=== PATIENT | male | born 1950 | race Caucasian/White ===

== ENCOUNTER 2017-09-03 09:14 | Outpatient (CLI) | payer MEDICARE, BC ==
--- NOTE | 2017-09-03 11:21 | CT ---
CT ABDOMEN AND PELVIS WITH AND WITHOUT CONTRAST: HISTORY: Hematuria. COMPARISON: None. FINDINGS: Mild atelectatic changes in the lung bases. No pericardial effusion. On noncontrast evaluation, there are no renal calculi. There is dilatation of the left ureter greate r than the right ureter. No abnormal calcifications within the urinary bladder. On the precontrast, there is mild dilatation of the left ureter, although on the 9-second delayed, th e left ureter is not dilated, likely the sequelae of peristalsis. There is no abnormal renal enhanci ng mass. No hydroureteral nephrosis. The calyces and collecting systems are without filling defect. The prostate is markedly enlarged measuring 4.5 x 5.4 x 4.7 cm, approximately. No dilated loops of l arge or small bowel. No adenopathy. Aortoiliac contour is normal with only mild vascular calcificat ions. IMPRESSION: 1. No nephroureteral lithiasis or hydroureteral nephrosis. No secondary evidence of recently passed stone. 2. No abnormal renal enhancing mass. 3. No defect within the collecting systems of the ureters or the kidneys bilaterally. 4. Marked prostatomegaly likely the cause of patient's hematuria. POS: [facility]
== END 2017-09-03 09:15 | disposition home or self-care (01) ==
LOC: CT 09:14
PROVIDERS: ATTEND Urology
DX: N40.1 Benign prostatic hyperplasia with lower urinary tract symptoms (principal); R31.29 Other microscopic hematuria
CPT/HCPCS: 36415; 74178; 80048; 81001; 87086

== ENCOUNTER 2018-03-22 14:23 | Outpatient (CLI) | payer MEDICARE, BC ==
[~2018-03-22 14:23] MED LIST: Gadobenate Dimeglumine 529 MG/1 ML (20ML VIAL) ONE
--- NOTE | 2018-03-23 11:15 | MRI ---
MRI PELVIS (PROSTATE) WITH AND WITHOUT IV CONTRAST: HISTORY: Elevated PSA of 5.25 on 02/23/2018 (normal 0-4). COMPARISON: None. TECHNIQUE: Multiplanar, multisequence MRI of the pelvis was performed with and without IV contrast using the pro state protocol. Review at an independent 3D work station was also performed. FINDINGS: No prostate biopsy was performed. The prostate measures 5.5 x 4.2 x 4.2 cm with a volume of 50.5 cc. No focal abnormal area of diffusion restriction is seen in the peripheral zone. No lentiform area of abnormally decreased T2 signal is seen in the transitional zone. No focal arterial enhancing mass i s identified. The prostatic capsule and seminal vesicles are intact. Heterogeneity in the prostate gland is consistent with BPH. No lymphadenopathy is seen in the pelvis. The pelvic sidewall is normal. No free fluid is identifie d. Bone marrow signal is unremarkable. IMPRESSION: PI-RADS 2-Low (clinically significant prostate cancer is unlikely to be present). This study was interpreted in consultation with Dr. Shakeel Casey, who concurs. POS: [facility]
== END 2018-03-22 14:24 | disposition home or self-care (01) ==
LOC: TBSIIMAG 14:23
PROVIDERS: ATTEND Urology
DX: N40.1 Benign prostatic hyperplasia with lower urinary tract symptoms (principal); R97.20 Elevated prostate specific antigen [PSA]
CPT/HCPCS: 72197; A9579

== ENCOUNTER 2018-07-19 15:20 | Outpatient (CLI) | payer MEDICARE, BC ==
[2018-07-19 16:40] LABS: Hemoglobin 13.3 g/dL (14.0-18.0); Mean Corpuscular HGB CONC 35.3 g/dL (32.0-36.0); Mean Corpuscular Volume 93.3 fL (78.0-98.0); Mean Platelet Volume 9.1 fL (7.4-10.4); Platelet Count 168 thou/uL (130-400); RBC Distribution Width 11.5 % (11.5-14.5); Red Blood Cell (RBC) Count 4.03 mill/uL (4.70-6.10); White Blood Cell (WBC) Count 5.3 thou/uL (4.8-10.8)
[2018-07-19 16:45] LABS: INR-International Normal Ratio 0.9; Prothrombin Time 12.4 SEC (12.0-14.7)
[2018-07-19 16:46] LABS: PTT 27.8 SEC (22.9-36.1)
[2018-07-19 17:01] LABS: Anion Gap 12 mmol/L (10-20); BUN (Urea Nitrogen) 24 mg/dL (8.4-25.7); Calc. Creatinine Clearance 0 mL/min (70-130); Calcium 9.5 mg/dL (7.8-10.44); Carbon Dioxide 30 mmol/L (23-31); Chloride 102 mmol/L (98-107); Estimated GFR-MDRD 44; Glucose 93 mg/dL (80-115); Potassium 4.6 mmol/L (3.5-5.1); Sodium 139 mmol/L (136-145)
[2018-07-19 20:01] LABS: Bilirubin Negative (Negative); Blood, Urine Negative (Negative); Clarity CLEAR (Clear); Glucose, Urine (Dipstick) Negative (Negative); Leukocyte Negative (Negative); Nitrite Negative (Negative); Protein, Urine (Dipstick) Negative (Neg-Trace); Specific Gravity, Urine 1.013 (1.002-1.036); Urobilinogen 0.2 mg/dL (0.2-1.0); pH, Urine 5.5 (5.0-9.0)
[2018-07-19 20:03] LABS: Bacteria/HPF None Seen HPF (None Seen); Hyaline Casts/LPF 0-3 HYALINE CAST LPF (0-3 Hyaline); Squamous Epithelial None Seen HPF (0-3); WBC/HPF 0-3 HPF (0-3)
--- NOTE | 2018-07-21 21:49 | EKG ---
Test Reason : Blood Pressure : / mmHG Vent. Rate : 047 BPM Atrial Rate : 047 BPM P-R Int : 162 ms QRS Dur : 094 ms QT Int : 480 ms P-R-T Axes : 071 056 207 degrees QTc Int : 424 ms Marked sinus bradycardia T wave abnormality, consider inferior ischemia T wave abnormality, consider anterolateral ischemia Abnormal ECG When compared with ECG of 20-JAN-1997 15:05, No significant change was found Confirmed by Armen HARPER ([id number]) on 07/21/2018 9:48:50 PM Referred By: MARIPOSA Confirmed By:Armen HARPER
== END 2018-07-19 15:21 | disposition home or self-care (01) ==
LOC: LABBT 15:20
PROVIDERS: ATTEND Urology
DX: Z01.818 Encounter for other preprocedural examination (principal); N40.0 Benign prostatic hyperplasia without lower urinary tract symptoms
CPT/HCPCS: 80048; 81001; 85027; 85610; 85730; 87086; 93005; 93010

== ENCOUNTER 2018-07-29 13:11 | Outpatient (CLI) | payer MEDICARE, BC | END 2018-07-29 13:12 | disposition home or self-care (01) | LOC: LABBT 13:11 | PROVIDERS: ATTEND Urology | DX: Z01.812 Encounter for preprocedural laboratory examination (principal); N40.0 Benign prostatic hyperplasia without lower urinary tract symptoms | CPT/HCPCS: 86850; 86900; 86901 ==

== ENCOUNTER → 2018-08-02 | Day surgery (SDC) | payer MEDICARE, BC ==
[2018-07-19 15:50] VITALS: BMI 24.4
[~2018-08-02] MED LIST changes: +Fentanyl 100 MCG/2 ML VIAL ONE; -Gadobenate Dimeglumine 529 MG/1 ML (20ML VIAL) ONE
== END ==
LOC: SDC 06:04
PROVIDERS: ATTEND Urology
DX: N40.1 Benign prostatic hyperplasia with lower urinary tract symptoms (principal); E78.00 Pure hypercholesterolemia, unspecified; F03.90 Unspecified dementia, unspecified severity, without behavioral disturbance, psychotic disturbance, mood disturbance, and anxiety; M54.16 Radiculopathy, lumbar region; M48.07 Spinal stenosis, lumbosacral region; Z53.9 Procedure and treatment not carried out, unspecified reason; Z88.4 Allergy status to anesthetic agent; Z79.899 Other long term (current) drug therapy; Z98.890 Other specified postprocedural states
CPT/HCPCS: J3010

== ENCOUNTER 2018-08-06 10:48 | Outpatient (CLI) | payer MEDICARE, BC ==
--- NOTE | 2018-08-08 06:28 | EKG ---
Test Reason : Blood Pressure : / mmHG Vent. Rate : 045 BPM Atrial Rate : 045 BPM P-R Int : 164 ms QRS Dur : 100 ms QT Int : 490 ms P-R-T Axes : 064 049 213 degrees QTc Int : 423 ms Marked sinus bradycardia ST and T wave changes inferiorly suggests ischemia. Abnormal ECG When compared with ECG of 19-JUL-2018 16:19, No significant change was found Confirmed by YI VIEIRA ([id number]) on 08/08/2018 6:27:48 AM Referred By: JYOTI Confirmed By:YI VIEIRA
== END 2018-08-06 10:49 | disposition home or self-care (01) ==
LOC: LABBT 10:48
PROVIDERS: ATTEND Urology
DX: Z01.810 Encounter for preprocedural cardiovascular examination (principal); N40.1 Benign prostatic hyperplasia with lower urinary tract symptoms; R97.20 Elevated prostate specific antigen [PSA]; M54.16 Radiculopathy, lumbar region; R35.0 Frequency of micturition; R31.29 Other microscopic hematuria; M48.07 Spinal stenosis, lumbosacral region; F03.90 Unspecified dementia, unspecified severity, without behavioral disturbance, psychotic disturbance, mood disturbance, and anxiety; Z98.890 Other specified postprocedural states; Z87.448 Personal history of other diseases of urinary system
CPT/HCPCS: 81001; 87086; 93005; 93010

== ENCOUNTER 2018-08-18 05:45 | Observation (INO) | payer MEDICARE, BC ==
[2018-08-18] MEDS ORDERED: MEROPENEM 1 GM/50 ML 1 GM in Premix Bag 1 BAG IVPB SCH (06:15)
[2018-08-18] MEDS ORDERED: Fentanyl 100 MCG/2 ML VIAL ONE (06:23)
[2018-08-18] MEDS ORDERED: Iothalamate Meglumine 60% 50 ML VIAL FS ONE (07:09)
[2018-08-18] MEDS ORDERED: ePHEDrine/0.9% NaCl/PF SYRINGE 50 mg/10 ml ONE (08:55)
[2018-08-18] MEDS ORDERED: SUGAMMADEX SODIUM 200 MG/2 ML VIAL ONE (09:53)
[2018-08-18] MEDS ORDERED: Morphine 4 MG/ML VIAL SLOW IVP PRN (10:06)
[2018-08-18] MEDS ORDERED: Acetaminophen 500 MG TAB PO PRN (10:06)
[2018-08-18] MEDS ORDERED: Morphine 2 MG/ML SYRINGE SLOW IVP PRN (10:06)
[2018-08-18] MEDS ORDERED: Zolpidem Tartrate 5 MG TAB PO PRN (10:06)
[2018-08-18] MEDS ORDERED: Mag-Al 1200 mg/1200 mg/30 ML UDCUP PO PRN (10:06)
[2018-08-18] MEDS ORDERED: Ondansetron PF 4 MG/2 ML Vial IVP PRN (10:06)
[2018-08-18] MEDS ORDERED: hydrALAZINE 20 MG/ML VIAL SLOW IVP PRN ×2 (10:06)
[2018-08-18] MEDS ORDERED: Bisacodyl 10 MG SUPP PR PRN (10:06)
[2018-08-18] MEDS ORDERED: HYDROcodone/Acetaminophen 5/325 mg Tablet PO PRN ×2 (10:06)
[2018-08-18] MEDS ORDERED: diphenhydrAMINE 25 MG CAP PO PRN (10:06)
[2018-08-18] MEDS ORDERED: diphenhydrAMINE 50 MG/ML VIAL IVP PRN (10:06)
[2018-08-18] MEDS ORDERED: Oxybutynin 5 MG TAB PO PRN (10:06)
[2018-08-18 10:50] LABS: Anion Gap 9 mmol/L (10-20); BUN (Urea Nitrogen) 17 mg/dL (8.4-25.7); Calc. Creatinine Clearance 59 mL/min (70-130); Carbon Dioxide 26 mmol/L (23-31); Chloride 108 mmol/L (98-107); Estimated GFR-MDRD 51; Glucose 106 mg/dL (80-115); Potassium 3.9 mmol/L (3.5-5.1); Sodium 139 mmol/L (136-145)
[2018-08-18 10:58] LABS: #Eosinphils 0.1 thou/uL (0.0-0.7); #Lymphocytes 1.1 thou/uL (1.20-3.40); #Monocytes 0.3 thou/uL (0.11-0.59); #Neutrophils 2.5 thou/uL (1.40-6.50); %Basophils 0.3 % (0.0-1.0); %Eosinophils 1.8 % (0.0-10.0); %Lymphocytes 26.8 % (21.0-51.0); %Monocytes 8.4 % (0.0-10.0); %Neutrophils 62.7 % (42.0-75.0); Hemoglobin 11.7 g/dL (14.0-18.0); Mean Corpuscular HGB CONC 34.4 g/dL (32.0-36.0); Mean Corpuscular Hemoglobin 31.7 pg (27.0-31.0); Mean Platelet Volume 8.6 fL (7.4-10.4); Platelet Count 119 thou/uL (130-400); RBC Distribution Width 11.3 % (11.5-14.5)
[2018-08-18] MEDS: Sodium Chloride 0.9% 1,000 ML IV SCH ×2 (11:15→20:21)
[2018-08-18 12:02] VITALS: BMI 25.2
[2018-08-18] MEDS ORDERED: Meropenem 2 GM in Sodium Chloride 0.9% 100 ML IVPB SCH (14:00)
--- NOTE | 2018-08-18 14:09 | OP ---
DATE OF PROCEDURE: 08/18/2018 PREOPERATIVE DIAGNOSES: 1. A 68-year-old male with history of BPH, elevated PSA. Prostate biopsy negative for malignancy. 2. History of bulbar stricture. POSTOPERATIVE DIAGNOSES: 1. A 68-year-old male with history of BPH, elevated PSA. Prostate biopsy negative for malignancy. 2. History of bulbar stricture. PROCEDURES PERFORMED: Cystoscopy, urethral dilatation of bulbar stricture, transurethral resection of prostate. ANESTHESIA: General. COMPLICATIONS: None apparent. DISPOSITION: To recovery room in stable condition. DRAINS: A 22-Syrian three-way Ryan catheter with CBI, 30 mL of sterile water in balloon. SPECIMEN: TUR prostate. ESTIMATED BLOOD LOSS: Less than 100. IV FLUIDS: 1700 mL. INDICATIONS FOR PROCEDURE AND HISTORY: Mr. 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 Stiles with history of recurrent urinary retention with postvoid residual of 400 mL. He has been on maximal BPH medical therapy and has been emptying appropriately. However, due to obstructive urinary symptoms, the patient desired to proceed with transurethral resection of prostate. He did have an elevated PSA, underwent prostate biopsy, negative for malignancy. Risks and complications of the procedure were reviewed with him in detail including, but not limited to, bleeding, pain, infection, injury to adjacent organs, urosepsis, urethral stricture, recurrence, clot retention, PE, DVT, perioperative morbidity, mortality. All questions were answered to his satisfaction. Desired to proceed without reservation. DESCRIPTION OF PROCEDURE: After an informed consent was signed, the patient was taken to the operating room, placed in a dorsal lithotomy position with the genital area prepped and draped in the usual surgical sterile fashion. A 21-Syrian cystoscope was utilized for cystoscopy demonstrating 2 areas of bulbar stricture. I was able to bypass the stricture with a 21-Syrian cystoscope. The stricture caliber was approximately 16-Syrian caliber. They appeared to be soft. There was a subtle mucosal defect at the bulbar urethral mucosa flap. There was no evidence of false passage. Prostatic urethra demonstrated severe obstruction with median lobe. The UOs were approximately 3 mm away from the reflection of the median lobe. There was no evidence of bladder stone. Trabeculation was noted consistent with chronic outlet obstruction. At this time, we calibrated his urethra to accommodate a 26-Syrian resectoscope. The meatus was dilated to 30-Syrian with ease, and a 26-Syrian resectoscope was placed under direct visualization with visual obturator. I was able to bypass the stricture under visual guidance and subsequently dilated with ease. Prostatic urethra was entered, and we switched to a Gyrus bipolar prostate loop. Transurethral resection of the prostate was performed. As he has an obstructing median lobe, this was taken down first. His lateral lobes were severely obstructing. His urethral length was long; therefore, his prostate to be resected in 4 quadrants instead of usual 2 quadrant lateral lobes as the length of the urethra was quite long. Transurethral resection of the prostate was performed without significant issues. Good hemostasis was obtained throughout the procedure. At the end of the procedure, he had a nice wide bladder neck, obstructive component had resolved, all prostatic chips were evacuated with Ryan-O, Incik evacuator. We re- staged his urethral stricture, which demonstrated that it was passively dilated atraumatically. I was able to pass a 20-Syrian catheter without significant issues. Clear output was noted and 30 mL insufflated, and CBI tubing attached demonstrating clear output. I will watch the patient overnight on CBI, we will hold tomorrow morning and if it is relatively clear, we will discharge the patient with indwelling Ryan catheter as he also was treated for concomitant urethral stricture. Job ID: [id number] [facility]
[2018-08-18] MEDS: Meropenem 2 GM, Admixture Fee 1 EACH in Sodium Chloride 0.9% 100 ML IVPB SCH (17:37)
[2018-08-18] MEDS: Fish Oil 1,000 MG CAP PO SCH (20:14)
[2018-08-18] MEDS: Docusate 100 MG CAP PO SCH (20:14)
[2018-08-18] MEDS: Famotidine/PF 20 mg/2ml Vial SLOW IVP SCH (20:14)
[2018-08-18] MEDS ORDERED: PROPOFOL 200 MG/20 ML VIAL ONE (20:54)
[2018-08-18] MEDS ORDERED: Glycopyrrolate 0.2 MG/ML 5 ML SYRINGE ONE (20:54)
[2018-08-18] MEDS ORDERED: Lidocaine 1% PF 5 ML VIAL ONE (20:54)
[2018-08-18] MEDS ORDERED: Ondansetron PF 4 MG/2 ML Vial ONE (20:54)
[2018-08-18] MEDS ORDERED: Magnesium Oxide 250 MG TAB PO SCH (21:00)
[2018-08-18] MEDS ORDERED: Dutasteride 0.5 MG CAP PO SCH (21:00)
[2018-08-19] MEDS: Meropenem 2 GM, Admixture Fee 1 EACH in Sodium Chloride 0.9% 100 ML IVPB SCH ×3 (01:11→17:22)
[2018-08-19 06:37] LABS: #Basophils 0.1 thou/uL (0.0-0.2); #Eosinphils 0.1 thou/uL (0.0-0.7); #Lymphocytes 1.2 thou/uL (1.20-3.40); #Monocytes 0.5 thou/uL (0.11-0.59); #Neutrophils 4.3 thou/uL (1.40-6.50); %Basophils 0.8 % (0.0-1.0); %Eosinophils 1.9 % (0.0-10.0); %Monocytes 8.3 % (0.0-10.0); %Neutrophils 69.1 % (42.0-75.0); Hemoglobin 11.7 g/dL (14.0-18.0); Mean Corpuscular HGB CONC 34.2 g/dL (32.0-36.0); Mean Corpuscular Volume 93.5 fL (78.0-98.0); Mean Platelet Volume 8.6 fL (7.4-10.4); Platelet Count 129 thou/uL (130-400); RBC Distribution Width 11.4 % (11.5-14.5); Red Blood Cell (RBC) Count 3.64 mill/uL (4.70-6.10); White Blood Cell (WBC) Count 6.2 thou/uL (4.8-10.8)
[2018-08-19 06:52] LABS: Anion Gap 10 mmol/L (10-20); BUN (Urea Nitrogen) 13 mg/dL (8.4-25.7); Calc. Creatinine Clearance 58 mL/min (70-130); Calcium 8.3 mg/dL (7.8-10.44); Carbon Dioxide 26 mmol/L (23-31); Chloride 107 mmol/L (98-107); Estimated GFR-MDRD 48; Glucose 100 mg/dL (80-115); Potassium 4.2 mmol/L (3.5-5.1); Sodium 139 mmol/L (136-145)
[2018-08-19] MEDS: Fish Oil 1,000 MG CAP PO SCH (08:15)
[2018-08-19] MEDS: Docusate 100 MG CAP PO SCH (08:15)
[2018-08-19] MEDS: Sodium Chloride 0.9% 1,000 ML IV SCH ×2 (08:15→08:38)
[2018-08-19] MEDS: Famotidine/PF 20 mg/2ml Vial SLOW IVP SCH (08:16)
[2018-08-19] MEDS ORDERED: Cyanocobalamin (Vitamin B-12) 1,000 MCG TAB PO SCH (09:00)
[2018-08-19] MEDS ORDERED: Tamsulosin HCl 0.4 MG CAP PO SCH (09:00)
[2018-08-19 16:35] VITALS: BP 121/76; TEMP 97.4
--- NOTE | 2018-08-20 02:42 | DIS ---
DATE OF ADMISSION: 08/18/2018 DATE OF DISCHARGE: 08/19/2018 ADMITTING DIAGNOSES: BPH, refractory to medical therapy. History of urethral stricture. DISCHARGE DIAGNOSES: BPH, refractory to medical therapy. History of urethral stricture. PROCEDURES: Cystoscopy, transurethral resection of prostate, urethral stricture dilatation. DISPOSITION: Home with excellence of care and family assist. DISCHARGE MEDICATIONS: He may resume his home medications, he is provided with [place] 5/325, #20, one p.o. q.6-8 hours p.r.n., ciprofloxacin 500 mg one p.o. b.i.d. x14 days, Colace 100 mg one p.o. b.i.d. ACTIVITY: No heavy lifting, strenuous activity. No baths. May shower. Increase water consumption is advised. He is discharged with indwelling urethral Ryan catheter due to concomitant urethral stricture dilatation. BRIEF HOSPITAL COURSE: Mr. Kaba is a pleasant 68-year-old male with history of BPH refractory to dual medical therapy. He is admitted for transurethral resection of prostate, which surgery was uneventful. Final pathology is negative for malignancy. His continuous bladder irrigation was held. On postop day #1, it had light pink to lynn urine. He has been ambulating with a leg bag and urine output remains clear pink tinged. He is stable for discharge. Urology followup appointment next for voiding trial. Job ID: [id number]
== END 2018-08-19 17:10 | disposition home or self-care (01) ==
LOC: SDC 05:45 → SURG A 10:06
PROVIDERS: ADMIT Urology; ATTEND Urology
PROC: 0VT08ZZ Resection of Prostate, Via Natural or Artificial Opening Endoscopic (ICD-10-PCS; principal; 2018-08-18)
DX: N40.1 Benign prostatic hyperplasia with lower urinary tract symptoms (principal); N13.8 Other obstructive and reflux uropathy; R35.0 Frequency of micturition; N41.1 Chronic prostatitis; E78.00 Pure hypercholesterolemia, unspecified; F03.90 Unspecified dementia, unspecified severity, without behavioral disturbance, psychotic disturbance, mood disturbance, and anxiety; Z90.49 Acquired absence of other specified parts of digestive tract; Z79.2 Long term (current) use of antibiotics; Z88.4 Allergy status to anesthetic agent; Z79.899 Other long term (current) drug therapy; Z98.890 Other specified postprocedural states
CPT/HCPCS: 52601; 80048 ×2; 85025 ×2; 86850; 86900; 86901; 88305; 96361; 96365; 96375; 96376; G0378; 36415; J2001; J2185; J2270; J2405; J2704; J3010; J7050; Q9961; S0028

== ENCOUNTER 2019-04-14 07:20 | Outpatient (CLI) | payer MEDICARE, BC ==
--- NOTE | 2019-04-14 12:37 | PET ---
PET SCAN DEMENTIA: HISTORY: 69-year-old male with dementia, without behavioral disturbance, unspecified dementia type. TECHNIQUE: PET scanning with CT attenuation correction of the brain was performed following the intravenous admi nistration of 8.4 mCi [id number] in the antecubital fossa. FINDINGS: There is hypometabolism in the temporoparietal lobes bilaterally. IMPRESSION: Findings are suspicious for Alzheimer's disease. POS: [facility]
== END 2019-04-14 07:21 | disposition home or self-care (01) ==
LOC: PET 07:20
PROVIDERS: ATTEND Psychiatry & Neurology Neurology
DX: F03.90 Unspecified dementia, unspecified severity, without behavioral disturbance, psychotic disturbance, mood disturbance, and anxiety (principal)
CPT/HCPCS: 78608; A9552

== ENCOUNTER 2021-07-23 10:11 | Outpatient (CLI) | payer MEDICARE, BC ==
[2021-07-24 08:05] LABS: SARS-CoV-2 PCR by NAA Not Detected (NotDetected)
== END 2021-07-23 10:12 | disposition home or self-care (01) ==
LOC: LABBT 10:11
PROVIDERS: ATTEND Internal Medicine Gastroenterology
DX: Z01.812 Encounter for preprocedural laboratory examination (principal); K63.5 Polyp of colon; Z20.822 Contact with and (suspected) exposure to COVID-19
CPT/HCPCS: U0003; U0005

== ENCOUNTER 2021-07-26 07:15 | Day surgery (SDC) | payer MEDICARE, BC ==
[2021-07-24 14:47] VITALS: BMI 22.4
[2021-07-26] MEDS ORDERED: Lidocaine 1% PF 5 ML VIAL ONE (09:20)
[2021-07-26] MEDS ORDERED: PROPOFOL 200 MG/20 ML VIAL ONE (09:20)
== END 2021-07-26 10:55 | disposition home or self-care (01) ==
LOC: SDC 07:15
PROVIDERS: ATTEND Internal Medicine Gastroenterology
PROC: 0DJD8ZZ Inspection of Lower Intestinal Tract, Via Natural or Artificial Opening Endoscopic (ICD-10-PCS; principal; 2021-07-26)
DX: K92.1 Melena (principal); K64.8 Other hemorrhoids; F03.90 Unspecified dementia, unspecified severity, without behavioral disturbance, psychotic disturbance, mood disturbance, and anxiety; E78.5 Hyperlipidemia, unspecified; N40.0 Benign prostatic hyperplasia without lower urinary tract symptoms; Z86.010 Personal history of colon polyps; Z79.899 Other long term (current) drug therapy
CPT/HCPCS: J2704

== ENCOUNTER 2022-04-29 15:12 | Emergency (ER) | payer MEDICARE, BC ==
[2022-04-29 16:20] LABS: Bilirubin Negative (Negative); Blood, Urine Negative (Negative); Clarity Clear (Clear); Glucose, Urine (Dipstick) Normal (Negative); Ketone, Urine Negative (Negative); Leukocyte Negative Leu/uL (Negative); Nitrite Negative (Negative); Protein, Urine (Dipstick) Negative (Neg-Trace); Specific Gravity, Urine 1.022 (1.002-1.036); Urobilinogen Normal mg/dL (Less than 2); pH, Urine 6.5 (5.0-9.0)
== END 2022-04-29 17:40 | disposition home or self-care (01) ==
LOC: ERS 15:12
DX: R33.9 Retention of urine, unspecified (principal)
CPT/HCPCS: 51702; 81003; 87086

== ENCOUNTER 2022-05-08 18:19 | Inpatient (IN) | payer MEDICARE, BC ==
[2022-05-08 19:35] LABS: Hemoglobin 13.9 g/dL (14.0-18.0); Mean Corpuscular HGB CONC 33.9 g/dL (32.0-36.0); Mean Corpuscular Hemoglobin 32.4 pg (27.0-31.0); Mean Corpuscular Volume 95.6 fL (78.0-98.0); Mean Platelet Volume 8.4 fL (7.4-10.4); Platelet Count 152 thou/uL (130-400); RBC Distribution Width 11.2 % (11.5-14.5); Red Blood Cell (RBC) Count 4.28 mill/uL (4.70-6.10); White Blood Cell (WBC) Count 17.9 thou/uL (4.8-10.8)
[2022-05-08 19:48] LABS: Band 12 % (5-11); Lymphocytes 2 % (21-51); MDiff Complete? YES; Monocytes 8 % (0-10); Neutrophil 74 % (42-75); Platelet Morphology Comment Appears Adequate; Polychromasia SLIGHT = 2-3 cells (100X) (0-2/hpf); Reactive Lymphocytes 4 % (0-10)
[2022-05-08 19:56] LABS: ALT (SGPT) 11 U/L (8-55); AST (SGOT) 14 U/L (5-34); Albumin 4.2 g/dL (3.4-4.8); Alkaline Phosphatase 81 U/L (40-110); Anion Gap 15 mmol/L (10-20); BUN (Urea Nitrogen) 18 mg/dL (8.4-25.7); Bilirubin, Total 1.4 mg/dL (0.2-1.2); CK (CPK) 41 U/L (30-200); Calc. Creatinine Clearance 0 mL/min (70-130); Calcium 9.2 mg/dL (7.8-10.44); Carbon Dioxide 23 mmol/L (23-31); Chloride 103 mmol/L (98-107); Estimated GFR 43; Globulin 2.5 g/dL (2.4-3.5); Glucose 182 mg/dL (83-110); Lipase 16 U/L (8-78); Potassium 4.2 mmol/L (3.5-5.1); Protein, Total 6.7 g/dL (5.8-8.1); Sodium 137 mmol/L (136-145)
[2022-05-08 20:43] LABS: Bacteria/HPF 4+ HPF (None Seen); Bilirubin Negative (Negative); Blood, Urine Negative (Negative); Clarity Turbid (Clear); Glucose, Urine (Dipstick) 300 mg/dL (Negative); Ketone, Urine Trace mg/dL (Negative); Leukocyte 250 Leu/uL (Negative); Nitrite Negative (Negative); Protein, Urine (Dipstick) 50 mg/dL (Neg-Trace); RBC/HPF None Seen HPF (0-3); Specific Gravity, Urine 1.028 (1.002-1.036); Squamous Epithelial 0-3 HPF (0-3); Urobilinogen Normal mg/dL (Less than 2)
[2022-05-08 20:44] LABS: Sperm/HPF Rare HPF (None Seen)
[2022-05-08] MEDS ORDERED: cefTRIAXone\\ROCEPHIN 2 GM VIAL ONE (21:04)
[2022-05-08] MEDS ORDERED: Vancomycin 1 GM/200 ML BAG ONE (21:59)
[2022-05-08 22:41] LABS: Lactic Acid 1.5 mmol/L (0.5-2.2)
[2022-05-09 00:30] LABS: Troponin I 0.053 ng/mL (< 0.028)
[2022-05-09 02:08] LABS: Troponin I 0.046 ng/mL (< 0.028)
[2022-05-09] MEDS ORDERED: Ondansetron PF 4 MG/2 ML Vial IVP PRN (03:05)
[2022-05-09] MEDS ORDERED: Dextrose 50% Abboject 50 ML SYRINGE SLOW IVP PRN (03:31)
[2022-05-09] MEDS ORDERED: Dextrose 5% in Water 1,000 ML IV PRN (03:31)
[2022-05-09 04:31] VITALS: BMI 25.0
[2022-05-09 05:08] LABS: Anion Gap 11 mmol/L (10-20); BUN (Urea Nitrogen) 17 mg/dL (8.4-25.7); Calc. Creatinine Clearance 57 mL/min (70-130); Calcium 8.4 mg/dL (7.8-10.44); Carbon Dioxide 23 mmol/L (23-31); Chloride 107 mmol/L (98-107); Estimated GFR 54; Glucose 112 mg/dL (83-110); Magnesium 1.6 mg/dL (1.6-2.6); Potassium 4.1 mmol/L (3.5-5.1); Sodium 137 mmol/L (136-145)
[2022-05-09] MEDS ORDERED: Cefepime 1 GM in Sodium Chloride 0.9% 100 ML IVPB SCH (06:00)
[2022-05-09 06:45] LABS: Band 24 % (5-11); Hemoglobin 12.5 g/dL (14.0-18.0); Lymphocytes 4 % (21-51); MDiff Complete? YES; Mean Corpuscular HGB CONC 35.7 g/dL (32.0-36.0); Mean Corpuscular Hemoglobin 34.3 pg (27.0-31.0); Mean Corpuscular Volume 96.1 fL (78.0-98.0); Mean Platelet Volume 9.1 fL (7.4-10.4); Monocytes 4 % (0-10); Neutrophil 68 % (42-75); Platelet Count 135 thou/uL (130-400); RBC Distribution Width 11.3 % (11.5-14.5); Red Blood Cell (RBC) Count 3.65 mill/uL (4.70-6.10); White Blood Cell (WBC) Count 18.7 thou/uL (4.8-10.8)
[2022-05-09] MEDS ORDERED: Vancomycin 1 GM in Premix Bag 1 BAG IVPB SCH (07:00)
[2022-05-09] MEDS ORDERED: Electrolyte Replacement Protocol 1 EACH FS SCH (07:30)
[2022-05-09] MEDS ORDERED: Rivastigmine 9.5mg/24 Hour PATCH TOP SCH (07:30)
[2022-05-09] MEDS ORDERED: Magnesium Sulfate 4 GM in Sodium Chloride 0.9% 250 ML 250 ML IVPB SCH (07:30)
[2022-05-09] MEDS ORDERED: Polyethylene Glycol 3350 17 GM Packet PO PRN (07:35)
[2022-05-09] MEDS ORDERED: Magnesium Sulfate In Water 4 GM in Premix Bag 1 BAG IVPB SCH (08:00)
[2022-05-09] MEDS: Multivit, Therapeutic 1 TAB PO SCH (08:22)
[2022-05-09] MEDS: Citrucel 500 MG TAB PO SCH (08:22)
[2022-05-09] MEDS: Fish Oil 1,000 MG CAP PO SCH ×2 (08:22→20:11)
[2022-05-09] MEDS: Saccharomyces boulardii 250 MG CAP PO SCH (08:22)
[2022-05-09] MEDS: Cholecalciferol 1,000 UNITS (25 MCG) TAB PO SCH (08:22)
[2022-05-09] MEDS: Cefepime 2 GM in Sodium Chloride 0.9% 100 ML IVPB SCH ×2 (08:23→20:10)
[2022-05-09] MEDS: Heparin 5,000 UNITS/ML VIAL SC SCH ×2 (08:28→20:11)
[2022-05-09] MEDS: Cyanocobalamin (Vitamin B-12) 1,000 MCG TAB PO SCH (08:36)
[2022-05-09] MEDS: Docusate 100 MG CAP PO SCH ×2 (08:37→20:11)
[2022-05-09] MEDS ORDERED: Non-Formulary Item 1 EACH (Cholecalciferol (Vitamin D3) [Vitamin D3] 5,000 UNIT Capsule) PO SCH (09:00)
[2022-05-09] MEDS ORDERED: Aspirin 81 mg Enteric Coated Tablet PO SCH (09:00)
[2022-05-09] MEDS: Rivastigmine 9.5mg/24 Hour PATCH TOP SCH (09:31)
[2022-05-09] MEDS ORDERED: Melatonin 3 MG TAB PO PRN (17:51)
[2022-05-09] MEDS: Magnesium Oxide 250 MG TAB PO SCH (20:11)
[2022-05-09] MEDS: Acetaminophen 325 MG TAB PO PRN (20:19)
[2022-05-09] MEDS ORDERED: VANCOMYCIN 1.75 GM/500 ML BAG 1.75 GM in Premix Bag 1 BAG IVPB SCH (21:00)
[2022-05-09] MEDS ORDERED: Melatonin 3 MG TAB PO SCH (21:00)
[2022-05-09] MEDS ORDERED: diphenhydrAMINE 25 MG CAP PO SCH (21:00)
[2022-05-10 06:41] LABS: #Eosinphils 0.1 thou/uL (0.0-0.7); #Lymphocytes 0.8 thou/uL (1.20-3.40); #Monocytes 0.7 thou/uL (0.11-0.59); #Neutrophils 12.2 thou/uL (1.40-6.50); %Basophils 0.1 % (0.0-1.0); %Eosinophils 0.4 % (0.0-10.0); %Lymphocytes 5.4 % (21.0-51.0); %Monocytes 4.7 % (0.0-10.0); %Neutrophils 89.3 % (42.0-75.0); Hemoglobin 11.6 g/dL (14.0-18.0); Mean Corpuscular HGB CONC 33.6 g/dL (32.0-36.0); Mean Corpuscular Hemoglobin 32.7 pg (27.0-31.0); Mean Corpuscular Volume 97.3 fL (78.0-98.0); Mean Platelet Volume 8.4 fL (7.4-10.4); Platelet Count 111 thou/uL (130-400); Platelet Morphology Comment Appears Decreased; RBC Distribution Width 11.2 % (11.5-14.5); Red Blood Cell (RBC) Count 3.53 mill/uL (4.70-6.10); White Blood Cell (WBC) Count 13.7 thou/uL (4.8-10.8)
[2022-05-10 06:44] LABS: Anion Gap 9 mmol/L (10-20); BUN (Urea Nitrogen) 15 mg/dL (8.4-25.7); Calc. Creatinine Clearance 54 mL/min (70-130); Calcium 8.3 mg/dL (7.8-10.44); Carbon Dioxide 25 mmol/L (23-31); Chloride 104 mmol/L (98-107); Estimated GFR 50; Glucose 113 mg/dL (83-110); Magnesium 2.1 mg/dL (1.6-2.6); Potassium 3.9 mmol/L (3.5-5.1); Sodium 134 mmol/L (136-145)
[2022-05-10 06:49] LABS: Phosphorus 1.6 mg/dL (2.3-4.7)
[2022-05-10] MEDS: PHOS-NAK 1 PKT PACK PO SCH ×2 (08:33→11:30)
[2022-05-10] MEDS: Cefepime 2 GM in Sodium Chloride 0.9% 100 ML IVPB SCH (08:34)
[2022-05-10] MEDS: Heparin 5,000 UNITS/ML VIAL SC SCH ×2 (08:37→20:49)
[2022-05-10] MEDS: Cyanocobalamin (Vitamin B-12) 1,000 MCG TAB PO SCH (08:38)
[2022-05-10] MEDS: Fish Oil 1,000 MG CAP PO SCH ×2 (08:38→20:48)
[2022-05-10] MEDS: Citrucel 500 MG TAB PO SCH (08:38)
[2022-05-10] MEDS: Cholecalciferol 1,000 UNITS (25 MCG) TAB PO SCH (08:38)
[2022-05-10] MEDS: Saccharomyces boulardii 250 MG CAP PO SCH (08:38)
[2022-05-10] MEDS: Docusate 100 MG CAP PO SCH (08:38)
[2022-05-10] MEDS: Multivit, Therapeutic 1 TAB PO SCH (08:38)
[2022-05-10] MEDS: Rivastigmine 9.5mg/24 Hour PATCH TOP SCH (08:50)
[2022-05-10] MEDS: cefTRIAXone\\ROCEPHIN 2 GM in Sodium Chloride 0.9% 100 ML IVPB SCH (16:58)
[2022-05-10] MEDS: Melatonin 3 MG TAB PO SCH (20:47)
[2022-05-10] MEDS: Magnesium Oxide 250 MG TAB PO SCH (20:47)
[2022-05-10] MEDS: Senokot S 8.6-50 MG TAB PO SCH (20:47)
[2022-05-11 06:51] LABS: #Eosinphils 0.1 thou/uL (0.0-0.7); #Lymphocytes 0.6 thou/uL (1.20-3.40); #Monocytes 0.5 thou/uL (0.11-0.59); #Neutrophils 5.6 thou/uL (1.40-6.50); %Basophils 0.3 % (0.0-1.0); %Eosinophils 1.1 % (0.0-10.0); %Monocytes 7.5 % (0.0-10.0); %Neutrophils 82.2 % (42.0-75.0); Hemoglobin 12.6 g/dL (14.0-18.0); Mean Corpuscular HGB CONC 34.1 g/dL (32.0-36.0); Mean Corpuscular Hemoglobin 32.6 pg (27.0-31.0); Mean Corpuscular Volume 95.6 fL (78.0-98.0); Mean Platelet Volume 8.5 fL (7.4-10.4); Platelet Count 131 thou/uL (130-400); Red Blood Cell (RBC) Count 3.88 mill/uL (4.70-6.10); White Blood Cell (WBC) Count 6.9 thou/uL (4.8-10.8)
[2022-05-11 07:16] LABS: Anion Gap 12 mmol/L (10-20); BUN (Urea Nitrogen) 18 mg/dL (8.4-25.7); Calc. Creatinine Clearance 57 mL/min (70-130); Calcium 8.8 mg/dL (7.8-10.44); Carbon Dioxide 25 mmol/L (23-31); Chloride 103 mmol/L (98-107); Estimated GFR 54; Glucose 118 mg/dL (83-110); Magnesium 1.9 mg/dL (1.6-2.6); Potassium 3.6 mmol/L (3.5-5.1); Sodium 136 mmol/L (136-145)
[2022-05-11] MEDS: Cyanocobalamin (Vitamin B-12) 1,000 MCG TAB PO SCH (09:16)
[2022-05-11] MEDS: Multivit, Therapeutic 1 TAB PO SCH (09:16)
[2022-05-11] MEDS: Cholecalciferol 1,000 UNITS (25 MCG) TAB PO SCH (09:16)
[2022-05-11] MEDS: Citrucel 500 MG TAB PO SCH (09:16)
[2022-05-11] MEDS: Fish Oil 1,000 MG CAP PO SCH ×2 (09:16→20:55)
[2022-05-11] MEDS: Rivastigmine 9.5mg/24 Hour PATCH TOP SCH (09:17)
[2022-05-11] MEDS: Saccharomyces boulardii 250 MG CAP PO SCH (09:18)
[2022-05-11] MEDS: Senokot S 8.6-50 MG TAB PO SCH ×2 (09:18→20:55)
[2022-05-11] MEDS ORDERED: Magnesium 2 GM/50 ML(in water) 2 GM in Premix Bag 1 BAG IVPB SCH (14:30)
[2022-05-11] MEDS: cefTRIAXone\\ROCEPHIN 2 GM in Sodium Chloride 0.9% 100 ML IVPB SCH (17:23)
[2022-05-11 19:21] LABS: SARS-CoV-2 NAA Rapid Test Not Detected (NotDetected)
[2022-05-11] MEDS: Melatonin 3 MG TAB PO SCH (20:55)
[2022-05-11] MEDS: Magnesium Oxide 250 MG TAB PO SCH (20:56)
[2022-05-12 06:38] LABS: Anion Gap 12 mmol/L (10-20); BUN (Urea Nitrogen) 20 mg/dL (8.4-25.7); Calc. Creatinine Clearance 56 mL/min (70-130); Calcium 9.1 mg/dL (7.8-10.44); Carbon Dioxide 27 mmol/L (23-31); Chloride 101 mmol/L (98-107); Estimated GFR 53; Glucose 97 mg/dL (83-110); Phosphorus 3.1 mg/dL (2.3-4.7); Sodium 136 mmol/L (136-145)
[2022-05-12 07:31] LABS: #Eosinphils 0.2 thou/uL (0.0-0.7); #Monocytes 0.8 thou/uL (0.11-0.59); #Neutrophils 3.6 thou/uL (1.40-6.50); %Basophils 0.6 % (0.0-1.0); %Eosinophils 3.1 % (0.0-10.0); %Lymphocytes 17.2 % (21.0-51.0); %Monocytes 14.4 % (0.0-10.0); %Neutrophils 64.7 % (42.0-75.0); Hemoglobin 12.9 g/dL (14.0-18.0); Mean Corpuscular HGB CONC 33.7 g/dL (32.0-36.0); Mean Corpuscular Hemoglobin 32.6 pg (27.0-31.0); Mean Corpuscular Volume 96.9 fL (78.0-98.0); Mean Platelet Volume 7.9 fL (7.4-10.4); Platelet Count 161 thou/uL (130-400); RBC Distribution Width 11.2 % (11.5-14.5); Red Blood Cell (RBC) Count 3.95 mill/uL (4.70-6.10); White Blood Cell (WBC) Count 5.5 thou/uL (4.8-10.8)
[2022-05-12] MEDS: Multivit, Therapeutic 1 TAB PO SCH (09:08)
[2022-05-12] MEDS: Cholecalciferol 1,000 UNITS (25 MCG) TAB PO SCH (09:08)
[2022-05-12] MEDS: Citrucel 500 MG TAB PO SCH (09:08)
[2022-05-12] MEDS: Fish Oil 1,000 MG CAP PO SCH ×2 (09:08→20:52)
[2022-05-12] MEDS: Senokot S 8.6-50 MG TAB PO SCH ×2 (09:08→20:53)
[2022-05-12] MEDS: Cyanocobalamin (Vitamin B-12) 1,000 MCG TAB PO SCH (09:08)
[2022-05-12] MEDS: Saccharomyces boulardii 250 MG CAP PO SCH (09:08)
[2022-05-12] MEDS: Rivastigmine 9.5mg/24 Hour PATCH TOP SCH (09:18)
[2022-05-12] MEDS: cefTRIAXone\\ROCEPHIN 2 GM in Sodium Chloride 0.9% 100 ML IVPB SCH (16:59)
[2022-05-12] MEDS: Magnesium Oxide 250 MG TAB PO SCH (20:52)
[2022-05-12] MEDS: Melatonin 3 MG TAB PO SCH (20:53)
[2022-05-13 06:32] LABS: #Eosinphils 0.2 thou/uL (0.0-0.7); #Lymphocytes 1.2 thou/uL (1.20-3.40); #Monocytes 0.6 thou/uL (0.11-0.59); #Neutrophils 3.8 thou/uL (1.40-6.50); %Basophils 0.2 % (0.0-1.0); %Eosinophils 2.7 % (0.0-10.0); %Lymphocytes 21.3 % (21.0-51.0); %Neutrophils 64.8 % (42.0-75.0); Hemoglobin 13.9 g/dL (14.0-18.0); Mean Corpuscular Hemoglobin 32.4 pg (27.0-31.0); Mean Corpuscular Volume 95.2 fL (78.0-98.0); Mean Platelet Volume 7.7 fL (7.4-10.4); Platelet Count 191 thou/uL (130-400); RBC Distribution Width 11.2 % (11.5-14.5); White Blood Cell (WBC) Count 5.9 thou/uL (4.8-10.8)
[2022-05-13 07:13] LABS: Anion Gap 15 mmol/L (10-20); BUN (Urea Nitrogen) 21 mg/dL (8.4-25.7); Calc. Creatinine Clearance 63 mL/min (70-130); Calcium 9.6 mg/dL (7.8-10.44); Carbon Dioxide 24 mmol/L (23-31); Chloride 102 mmol/L (98-107); Estimated GFR 61; Glucose 113 mg/dL (83-110); Phosphorus 3.9 mg/dL (2.3-4.7); Potassium 4.1 mmol/L (3.5-5.1); Sodium 137 mmol/L (136-145)
[2022-05-13] MEDS ORDERED: Magnesium 2 GM/50 ML(in water) 2 GM in Premix Bag 1 BAG IVPB SCH (08:00)
[2022-05-13] MEDS: Cholecalciferol 1,000 UNITS (25 MCG) TAB PO SCH (08:53)
[2022-05-13] MEDS: Citrucel 500 MG TAB PO SCH (08:53)
[2022-05-13] MEDS: Cyanocobalamin (Vitamin B-12) 1,000 MCG TAB PO SCH (08:54)
[2022-05-13] MEDS: Multivit, Therapeutic 1 TAB PO SCH (08:54)
[2022-05-13] MEDS: Saccharomyces boulardii 250 MG CAP PO SCH (08:54)
[2022-05-13] MEDS: Rivastigmine 9.5mg/24 Hour PATCH TOP SCH (08:54)
[2022-05-13] MEDS: Senokot S 8.6-50 MG TAB PO SCH ×2 (08:54→20:15)
[2022-05-13] MEDS: Fish Oil 1,000 MG CAP PO SCH ×2 (08:54→20:14)
[2022-05-13] MEDS: Acetaminophen 325 MG TAB PO PRN (10:06)
[2022-05-13] MEDS ORDERED: Lorazepam 0.5 MG TAB PO SCH (15:00)
[2022-05-13] MEDS: cefTRIAXone\\ROCEPHIN 2 GM in Sodium Chloride 0.9% 100 ML IVPB SCH (17:53)
[2022-05-13] MEDS: Magnesium Oxide 250 MG TAB PO SCH (20:14)
[2022-05-13] MEDS: Melatonin 3 MG TAB PO SCH (20:14)
[2022-05-13] MEDS ORDERED: Polyethylene Glycol 3350 17 GM Packet PO SCH (21:00)
[2022-05-14 05:44] VITALS: TEMP 97.4
[2022-05-14 07:50] VITALS: BP 133/87
[2022-05-14 08:27] LABS: #Eosinphils 0.1 thou/uL (0.0-0.7); #Monocytes 0.8 thou/uL (0.11-0.59); #Neutrophils 9.5 thou/uL (1.40-6.50); %Eosinophils 0.5 % (0.0-10.0); %Lymphocytes 8.5 % (21.0-51.0); %Monocytes 7.1 % (0.0-10.0); %Neutrophils 83.9 % (42.0-75.0); Hemoglobin 14.8 g/dL (14.0-18.0); Mean Corpuscular HGB CONC 33.2 g/dL (32.0-36.0); Mean Corpuscular Hemoglobin 31.9 pg (27.0-31.0); Mean Corpuscular Volume 96.1 fL (78.0-98.0); Platelet Count 250 thou/uL (130-400); RBC Distribution Width 11.1 % (11.5-14.5); Red Blood Cell (RBC) Count 4.62 mill/uL (4.70-6.10); White Blood Cell (WBC) Count 11.3 thou/uL (4.8-10.8)
[2022-05-14] MEDS: Multivit, Therapeutic 1 TAB PO SCH (09:50)
[2022-05-14] MEDS: Fish Oil 1,000 MG CAP PO SCH (09:50)
[2022-05-14] MEDS: Saccharomyces boulardii 250 MG CAP PO SCH (09:50)
[2022-05-14] MEDS: Cyanocobalamin (Vitamin B-12) 1,000 MCG TAB PO SCH (09:50)
[2022-05-14] MEDS: Senokot S 8.6-50 MG TAB PO SCH (09:50)
[2022-05-14] MEDS: Citrucel 500 MG TAB PO SCH (09:50)
[2022-05-14] MEDS: Cholecalciferol 1,000 UNITS (25 MCG) TAB PO SCH (09:50)
[2022-05-14] MEDS: Rivastigmine 9.5mg/24 Hour PATCH TOP SCH (09:55)
[2022-05-14] MEDS ORDERED: cefTRIAXone\\ROCEPHIN 2 GM in Sodium Chloride 0.9% 100 ML IVPB SCH (17:00)
[2022-05-15] MEDS ORDERED: Polyethylene Glycol 3350 17 GM Packet PO SCH (09:00)
== END 2022-05-14 14:30 | DRG 698 ==
LOC: ERS 18:19 → ERHOLD 22:13 → T4-A 05-09 04:20
PROVIDERS: ADMIT Internal Medicine; ATTEND Internal Medicine
DX: T83.511A Infection and inflammatory reaction due to indwelling urethral catheter, initial encounter (principal); Z66 Do not resuscitate; Z20.822 Contact with and (suspected) exposure to COVID-19; A41.4 Sepsis due to anaerobes; G93.41 Metabolic encephalopathy; I21.A1 Myocardial infarction type 2; R65.20 Severe sepsis without septic shock; N12 Tubulo-interstitial nephritis, not specified as acute or chronic; N17.9 Acute kidney failure, unspecified; E87.2 Acidosis; F05 Delirium due to known physiological condition; E87.1 Hypo-osmolality and hyponatremia; F03.91 Unspecified dementia, unspecified severity, with behavioral disturbance; N18.30 Chronic kidney disease, stage 3 unspecified; R74.8 Abnormal levels of other serum enzymes; E86.0 Dehydration; F51.04 Psychophysiologic insomnia; H91.90 Unspecified hearing loss, unspecified ear; N40.1 Benign prostatic hyperplasia with lower urinary tract symptoms; R33.8 Other retention of urine; E16.2 Hypoglycemia, unspecified; F41.9 Anxiety disorder, unspecified; E78.00 Pure hypercholesterolemia, unspecified; D64.9 Anemia, unspecified; R48.0 Dyslexia and alexia; Y84.6 Urinary catheterization as the cause of abnormal reaction of the patient, or of later complication, without mention of misadventure at the time of the procedure; D69.6 Thrombocytopenia, unspecified; E83.42 Hypomagnesemia; E83.39 Other disorders of phosphorus metabolism; Z79.899 Other long term (current) drug therapy; Z90.79 Acquired absence of other genital organ(s); Z98.890 Other specified postprocedural states; Z90.49 Acquired absence of other specified parts of digestive tract; Z82.49 Family history of ischemic heart disease and other diseases of the circulatory system
CPT/HCPCS: 36415; 36416; 51701; 70450; 71045; 76770; 80048; 80053; 81003; 81015; 82550; 82553; 83605; 83690; 83735; 83880; 84100; 84484; 85025; 87040; 87077; 87086; 87149; 87186; 93005; 96365; 96367; J0692; J0696; J1644; J3370; J3475; J3490; U0002; U0003; U0005

== ENCOUNTER 2022-06-20 07:09 | Emergency (ER) | payer MEDICARE, BC ==
[2022-06-20] MEDS ORDERED: Morphine 4 MG/ML VIAL ONE (07:22)
[2022-06-20] MEDS ORDERED: Ondansetron PF 4 MG/2 ML Vial ONE (07:23)
[2022-06-20] MEDS ORDERED: Boostrix 0.5 ML (Tdap) VIAL (>/=7 yrs of age) ONE (08:21)
[2022-06-20] MEDS ORDERED: Tranexamic Acid 1,000 MG/10 ML VIAL ONE (08:22)
[2022-06-20] MEDS ORDERED: Gabapentin 300 MG CAP PO SCH (08:45)
[2022-06-20 08:59] LABS: #Eosinphils 0.1 thou/uL (0.0-0.7); #Lymphocytes 0.9 thou/uL (1.20-3.40); #Monocytes 0.5 thou/uL (0.11-0.59); #Neutrophils 4.1 thou/uL (1.40-6.50); %Basophils 0.4 % (0.0-1.0); %Eosinophils 1.7 % (0.0-10.0); %Lymphocytes 16.2 % (21.0-51.0); %Monocytes 8.5 % (0.0-10.0); %Neutrophils 73.3 % (42.0-75.0); Hemoglobin 12.5 g/dL (14.0-18.0); Mean Corpuscular Hemoglobin 32.7 pg (27.0-31.0); Mean Corpuscular Volume 96.2 fl (78.0-98.0); Mean Platelet Volume 8.1 fL (7.4-10.4); Platelet Count 141 thou/uL (130-400); RBC Distribution Width 11.4 % (11.5-14.5); Red Blood Cell (RBC) Count 3.83 mill/uL (4.70-6.10); White Blood Cell (WBC) Count 5.5 thou/uL (4.8-10.8)
[2022-06-20 09:00] LABS: PTT 26.8 sec (22.9-36.1); Prothrombin Time 13.4 sec (12.0-14.7)
[2022-06-20 09:16] LABS: ALT (SGPT) 17 U/L (8-55); AST (SGOT) 19 U/L (5-34); Albumin 3.9 g/dL (3.4-4.8); Alkaline Phosphatase 58 U/L (40-110); Anion Gap 8 mmol/L (10-20); BUN (Urea Nitrogen) 17 mg/dL (8.4-25.7); Bilirubin, Total 0.6 mg/dL (0.2-1.2); CK (CPK) 228 U/L (30-200); Calc. Creatinine Clearance 0 mL/min (70-130); Carbon Dioxide 30 mmol/L (23-31); Chloride 105 mmol/L (98-107); Estimated GFR 55; Globulin 2.4 g/dL (2.4-3.5); Glucose 105 mg/dL (83-110); Potassium 3.8 mmol/L (3.5-5.1); Protein, Total 6.3 g/dL (5.8-8.1); Sodium 139 mmol/L (136-145)
== END 2022-06-20 10:10 ==
LOC: ERS 07:09
DX: S06.5XAA Traumatic subdural hemorrhage with loss of consciousness status unknown, initial encounter (principal); W05.0XXA Fall from non-moving wheelchair, initial encounter
CPT/HCPCS: 36415; 70450; 70486; 72125; 80053; 82550; 85025; 85610; 85730; 90471; 90715; 96374; 96375; J2270; J2405